=== PATIENT | female | born 1940 | race Caucasian/White ===

== ENCOUNTER 2016-11-29 07:20 | Emergency (ER) | payer OTHER, BC ==
[2016-11-29 07:42] VITALS: BP 134/76; BMI 22.8
[2016-11-29 08:04] LABS: BASOPHILS # (AUTO) 0.1 X10^3/uL (0.0-0.1); BASOPHILS % (AUTO) 0.5 % (0.2-1.0); EOSINOPHILS % (AUTO) 0.1 % (0.9-2.9); HEMATOCRIT 40.5 % (36.0-47.0); LYMPHOCYTES % (AUTO) 8.3 % (21.0-51.0); MEAN CORPUSCULAR HEMOGLOBIN 30.2 pg (27.0-34.0); MEAN CORPUSCULAR HGB CONC 34.6 g/dL (33.0-35.0); MEAN CORPUSCULAR VOLUME 87.3 fL (80.0-100.0); MEAN PLATELET VOLUME 6.8 fL (7.4-11.0); MONOCYTES # (AUTO) 0.5 x10^3/uL (0.3-0.8); MONOCYTES % (AUTO) 3.9 % (0.0-13.0); NEUTROPHILS # (AUTO) 10.2 x10^3/uL (2.2-4.8); NEUTROPHILS % (AUTO) 87.2 % (42.0-75.0); PLATELET COUNT 387 X10^3/uL (150.0-450.0); RED BLOOD COUNT 4.64 X10^6/uL (3.5-5.4); RED CELL DISTRIBUTION WIDTH 12.8 % (11.6-16.5); WHITE BLOOD COUNT 11.7 X10^3/uL (3.6-10.0)
[2016-11-29] MEDS ORDERED: NS 1000 ML 1,000 ML ONE ×2 (08:21→09:43)
[2016-11-29 08:24] LABS: ALANINE AMINOTRANSFERASE 16 Units/L (12-78); ALKALINE PHOSPHATASE 83 Units/L (46-116); ASPARTATE AMINO TRANSFERASE 16 Units/L (15-37); BLOOD UREA NITROGEN 16 mg/dL (7-18); CALCIUM 9.1 mg/dL (8.5-10.1); CARBON DIOXIDE 26.4 mmol/L (21-32); CHLORIDE 102 mmol/L (98-107); CREATININE 0.96 mg/dL (0.55-1.02); GLUCOSE 102 mg/dL (65-99); SODIUM 140 mmol/L (136-145); TOTAL PROTEIN 8.5 g/dL (6.4-8.2); eGFR BLACK RACES > 60 (>60); eGFR NON BLACK RACES > 60 (>60)
[2016-11-29] MEDS ORDERED: NS 1000 ML 1,000 ML IV SCH (09:00)
--- NOTE | 2016-11-29 09:11 | DR.GENAD ---
HPI - PCP Primary Care Physician: NLD - Complaint/Symptoms Chief Complaint Doctors Comments: Patient presented to the ED with complaint of rectal bleeding onset one days ago associated with nausea and rapid heart beat The blood was bright red. She admits to having a previous episode four months while visiting her daughter in [place]. She was hospitalized for four daysn and various studies done to include EGD and colonoscopy with a negative workup. She has done well until today. She denies tenesmus or abdominal pain. Chief Complaint:: PT C/O BLEEDING FROM RECTUM WITH NAUSEA AND VOMTTING THAT STARTED YESTERDAY. PT STATES SHE HAS HAD THESE SAME SYMPTOMS BEFORE (ACUTE COLITIS). PT STATES - Source History Provided: Patient - Mode of Arrival Mode of Arrival: Ambulatory - Timing Onset of Chief Complaint: 11/28/16 PMH - PMH Past Medical History: Yes Past Medical History: Arthritis, Hypothyroidism Past Medical History Comment: COLITIS Past Surgical History: Yes Surgical History: Ortho Surgery - Family History History of Family Medical Conditions: No - Social History Does any household member use tobacco: No Alcohol Use: None Do you use any recreational Drugs:: No Lives With: Alone Lives Where: Home - infectious screening In the last 2 months have you had wt loss of >10#?: NO Have you had fever, night sweats or hemotysis?: No Have you traveled outside the country in the last 6 months?: No Isolation: Standard ROS - Review of Systems Constitutional: No Symptoms Reported. negative: Diaphoresis, Fever, Malaise, Weakness, Fatigue Eyes: No Symptoms Reported ENTM: No Symptoms Reported Respiratoy: No Symptoms Reported Cardiovascular: No Symptoms Reported Gastrointestinal/Abdominal: No Symptoms Reported Genitourinary: No Symptoms Reported Neurological: No Symptoms Reported Musculoskeletal: No Symptoms Reported Integumentary: No Symptoms Reported Hematologic/Lymphatic: No Symptoms Reported Endocrine: No Symptoms Reported Psychiatric: No Symptoms Reported All Other Systems: Reviewed and Negative PE - Vital Signs Vitals: Temperature 97.4 F Pulse Rate 108 Respiratory Rate 18 Blood Pressure 134/76 O2 Sat by Pulse Oximetry 99 - General Limitations: No Limitations General Appearance: Alert, In No Apparent Distress - Head Head Exam: Normal Inspection, Atraumatic - Eyes Eye exam: Normal Appearance, PERRL, EOMI - ENT ENT Exam: Normal Exam, Normal Oropharynx External Ear Exam: Normal External Inspection TM/Canal Exam: Bilateral Normal Nose Exam: Normal Nose Exam, Sinus Tenderness Mouth Exam: Drooling Throat Exam: Normal Inspection - Neck Neck Exam: Normal Inspection, Full ROM - Chest Chest Inspection: Normal Inspection, Symmetric Chest Wall Rise - Respiratory Respiratory Exam: Normal Lung Sounds Bilat Respiratory Exam: Bilateral Clear to Auscultation - Cardiovascular Cardiovascular Exam: Regular Rate, Tachycardia - Abdominal Exam Abdominal Exam: Normal Inspection, Normal Bowel Sounds. negative: Distention, Tenderness Abdominal Tenderness: negative: RUQ, RLQ, LUQ, LLQ, Epigastrium, Suprapubic, Diffuse, Mild, Moderate, Severe, Other - Extremities Extremities Exam: Normal Inspection - Back Back Exam: Normal Inspection - Neurologic Neurological Exam: Alert, Oriented X3, CN II-XII Intact - Psychiatric Psychiatric Exam: Normal Affect, Normal Mood - Skin Skin Exam: Warm, Dry, Intact Course - Reevaluation 1st: Unchanged ROR - Labs Reviewed Laboratory Results Reviewed?: Yes Result Diagrams: 11/29/16 07:55 11/29/16 07:55 Laboratory: WBC 11.7 X10^3/uL (3.6-10.0) H 11/29/16 07:55 RBC 4.64 X10^6/uL (3.5-5.4) 11/29/16 07:55 Hgb 14.0 g/dL (12.0-16.0) 11/29/16 07:55 Hct 40.5 % (36.0-47.0) 11/29/16 07:55 MCV 87.3 fL (80.0-100.0) 11/29/16 07:55 MCH 30.2 pg (27.0-34.0) 11/29/16 07:55 MCHC 34.6 g/dL (33.0-35.0) 11/29/16 07:55 RDW 12.8 % (11.6-16.5) 11/29/16 07:55 Plt Count 387 X10^3/uL (150.0-450.0) 11/29/16 07:55 MPV 6.8 fL (7.4-11.0) L 11/29/16 07:55 Neut % 87.2 % (42.0-75.0) H 11/29/16 07:55 Lymph % 8.3 % (21.0-51.0) L 11/29/16 07:55 [place] % 3.9 % (0.0-13.0) 11/29/16 07:55 Eos % 0.1 % (0.9-2.9) L 11/29/16 07:55 Baso % 0.5 % (0.2-1.0) 11/29/16 07:55 Neut # 10.2 x10^3/uL (2.2-4.8) H 11/29/16 07:55 Lymph # 1.0 X10^3/uL (1.3-2.9) L 11/29/16 07:55 [place] # 0.5 x10^3/uL (0.3-0.8) 11/29/16 07:55 Eos # 0.0 x10^3/uL (0.0-0.2) 11/29/16 07:55 Baso # 0.1 X10^3/uL (0.0-0.1) 11/29/16 07:55 Absolute Nucleated RBC 0.1 /100WBC 11/29/16 07:55 Sodium 140 mmol/L (136-145) 11/29/16 07:55 Corrected Sodium TNP 11/29/16 07:55 Potassium 3.6 mmol/L (3.5-5.1) 11/29/16 07:55 Chloride 102 mmol/L (98-107) 11/29/16 07:55 Carbon Dioxide 26.4 mmol/L (21-32) 11/29/16 07:55 BUN 16 mg/dL (7-18) 11/29/16 07:55 Creatinine 0.96 mg/dL (0.55-1.02) 11/29/16 07:55 Est GFR (MDRD) Af Amer > 60 (>60) 11/29/16 07:55 Est GFR (MDRD) Non-Af > 60 (>60) 11/29/16 07:55 Glucose 102 mg/dL (65-99) H 11/29/16 07:55 Calcium 9.1 mg/dL (8.5-10.1) 11/29/16 07:55 Corrected Calcium TNP 11/29/16 07:55 Total Bilirubin 0.50 mg/dL (0.2-1.0) 11/29/16 07:55 AST 16 Units/L (15-37) 11/29/16 07:55 ALT 16 Units/L (12-78) 11/29/16 07:55 Alkaline Phosphatase 83 Units/L (46-116) 11/29/16 07:55 C-Reactive Protein 11.80 mg/L (0-3.0) H 11/29/16 07:55 Total Protein 8.5 g/dL (6.4-8.2) H 11/29/16 07:55 Albumin 4.0 g/dL (3.4-5.0) 11/29/16 07:55 Globulin 4.5 g/dL (2.5-4.5) 11/29/16 07:55 Albumin/Globulin Ratio 0.9 Ratio (1.1-2.1) L 11/29/16 07:55 Stool Description Ifob collection tube 11/29/16 08:31 Stl Occult Blood (IFOB) Positive (NEGATIVE) A 11/29/16 08:31 - XRAY XRAY Interpreted by: Radiologist (CT Abd/pel: Multiple small subcentimer hypodensities are noted in the liever which are too small to cahracterize but likely represent cysts. The gallbladder is present and nondistended. There is no intrahepatic or extrahepatic bile duct dilatation. The spleen, pancreas, and bilateral adrenal glands appear normal. There are several small left renal sinus cysts. There is no hydronephrosis. The stomach is unremarkable. The small bowel and colon are nondistended. k The appendix is of normal caliber without adjacent inflammatory changes. There is circumferential wall thickening of the desending colon from the splenic flexure to the proximal sigmoid colon. There is mild adjacent fat stranding. No adjacent fluid collections are seen. The abdominal aorta is of normal caliber. There is no free fluid or free intraperitoneal air. The urinary bladder is grossly unremarkable. Mild wall thickening of the proximal sigmoid colon is noted. There is no free fluid in the pelvis. No acute osseous abnormalities are identified. Impression: Wall thickening of the desending colon from the spenic fexure through the proximal sigmoid colon with mild adjacent inflammatory changes are compatible with colitis. Considerations include infectious colitis, inflammatory bowel disease, with ischemic colitis not entirely excluded although felt less likely given the distribution.) - Diagnosis Discharge Problem: Colitis, acute - Discharge Plan Condition: Stable - Follow ups/Referrals Follow ups/Referrals: NFD,None [Primary Care Provider] - 3 days - Instructions
[2016-11-29] MEDS ORDERED: NS 100 ML IV 100 ML IV ONE (09:50)
--- NOTE | 2016-11-29 11:04 | CT ---
HISTORY: Rectal bleeding. Study: CT abdomen and pelvis with contrast Comparison: None Technique: Multiple axial images of the abdomen and pelvis were obtained from the lung bases to the pubic symph ysis after the administration of IV contrast. Automated exposure control (AEC) was utilized to adju st the MA and/or kV according to patient size. Findings: Lung bases are grossly clear. There are no pleural effusions. Abdomen: Multiple small subcentimeter hypodensities are noted in the liver which are too small to characteriz e but likely represent cysts.. The gallbladder is present and nondistended. There is no intrahepat ic or extrahepatic bile duct dilatation. The spleen, pancreas, and bilateral adrenal glands appear normal. There are several small left renal sinus cysts. There is no hydronephrosis. The stomach is unremarkable. The small bowel and colon are nondistended. The appendix is of normal caliber without adjacent inflammatory changes. There is circumferential wall thickening of the desc ending colon from the splenic flexure to the proximal sigmoid colon. There is mild adjacent fat stra nding. No adjacent fluid collections are seen. The abdominal aorta is of normal caliber. There is no free fluid or free intraperitoneal air. Pelvis: The urinary bladder is grossly unremarkable. Mild wall thickening of the proximal sigmoid colon is n oted.. There is no free fluid in the pelvis. No acute osseous abnormalities are identified. IMPRESSION: 1. Wall thickening of the descending colon from the splenic flexure through the proximal sigmoid co [place] with mild adjacent inflammatory changes. Findings are compatible with colitis. Considerations in clude infectious colitis, inflammatory bowel disease, with ischemic colitis not entirely excluded al though felt less likely given the distribution 2. Other findings as above.. Reported By:
== END 2016-11-29 11:36 | disposition home or self-care (01) ==
LOC: ER 07:37
DX: K52.89 Other specified noninfective gastroenteritis and colitis (principal)
CPT/HCPCS: 36415; 74177; 80053; 82270; 85025; 86140; 96365; 96367; 96374; 99283; A4222

== ENCOUNTER → 2016-12-09 | Outpatient (CLI) | payer OTHER, BC ==
[2016-11-29 07:42] VITALS: BP 134/76
[2016-12-09 09:24] LABS: CHOL/HDL RATIO 2.9 (0.0-5.0)
== END ==
LOC: LAB 08:36
PROVIDERS: ATTEND Nurse Practitioner Adult Health
DX: I10 Essential (primary) hypertension (principal)
CPT/HCPCS: 36415; 80061

== ENCOUNTER → 2017-01-29 | Outpatient (CLI) | payer OTHER, BC ==
--- NOTE | 2017-01-29 07:36 | RAD ---
HISTORY: Right hip pain Study: Right hip two views, AP pelvis Comparison: None Findings: The pelvic bones and SI joints are intact. The right hip joint is intact. Moderate degenerative join t disease is present in the form of joint space narrowing and osteophyte formation. No joint erosion s are noted. No fracture, lytic, or blastic lesion is identified. Incidental note is made of degener ative joint disease in the left hip. IMPRESSION: Degenerative joint disease right hip as describe Incidental note is made of degenerative joint disease in the left hip Reported By:
== END ==
LOC: RAD 06:47
PROVIDERS: ATTEND Internal Medicine Rheumatology
DX: M25.551 Pain in right hip (principal); M16.11 Unilateral primary osteoarthritis, right hip
CPT/HCPCS: 73501

== ENCOUNTER → 2017-02-17 | Outpatient (CLI) | payer OTHER, BC ==
[2017-02-17 09:19] LABS: ALANINE AMINOTRANSFERASE 15 Units/L (12-78); ALBUMIN 3.3 g/dL (3.4-5.0); ALKALINE PHOSPHATASE 68 Units/L (46-116); ASPARTATE AMINO TRANSFERASE 11 Units/L (15-37); BLOOD UREA NITROGEN 10 mg/dL (7-18); CALCIUM 8.3 mg/dL (8.5-10.1); CARBON DIOXIDE 26.8 mmol/L (21-32); CHLORIDE 106 mmol/L (98-107); COR CA(FOR HYPOALB) 8.9 mg/dL (8.5-10.1); CREATININE 0.53 mg/dL (0.55-1.02); GLUCOSE 83 mg/dL (65-99); SODIUM 141 mmol/L (136-145); TOTAL PROTEIN 7.1 g/dL (6.4-8.2); eGFR BLACK RACES > 60 (>60); eGFR NON BLACK RACES > 60 (>60)
[2017-02-17 09:21] LABS: BASOPHILS # (AUTO) 0.1 X10^3/uL (0.0-0.1); BASOPHILS % (AUTO) 1.3 % (0.2-1.0); EOSINOPHILS # (AUTO) 0.1 x10^3/uL (0.0-0.2); EOSINOPHILS % (AUTO) 1.6 % (0.9-2.9); HEMATOCRIT 34.4 % (36.0-47.0); HEMOGLOBIN 11.9 g/dL (12.0-16.0); LYMPHOCYTES # (AUTO) 1.2 X10^3/uL (1.3-2.9); LYMPHOCYTES % (AUTO) 23.9 % (21.0-51.0); MEAN CORPUSCULAR HEMOGLOBIN 30.8 pg (27.0-34.0); MEAN CORPUSCULAR HGB CONC 34.5 g/dL (33.0-35.0); MEAN CORPUSCULAR VOLUME 89.3 fL (80.0-100.0); MONOCYTES # (AUTO) 0.5 x10^3/uL (0.3-0.8); MONOCYTES % (AUTO) 9.4 % (0.0-13.0); NEUTROPHILS # (AUTO) 3.2 x10^3/uL (2.2-4.8); NEUTROPHILS % (AUTO) 63.8 % (42.0-75.0); PLATELET COUNT 360 X10^3/uL (150.0-450.0); RED BLOOD COUNT 3.85 X10^6/uL (3.5-5.4); RED CELL DISTRIBUTION WIDTH 13.3 % (11.6-16.5)
== END ==
LOC: LAB 08:30
DX: H16.223 Keratoconjunctivitis sicca, not specified as Sjogren's, bilateral (principal); K11.7 Disturbances of salivary secretion; M19.041 Primary osteoarthritis, right hand; M19.042 Primary osteoarthritis, left hand; M25.511 Pain in right shoulder
CPT/HCPCS: 36415; 80053; 85025

== ENCOUNTER → 2017-03-03 | Outpatient (CLI) | payer OTHER, BC ==
[2017-03-03 09:08] LABS: ALANINE AMINOTRANSFERASE 13 Units/L (12-78); ALBUMIN 3.4 g/dL (3.4-5.0); ALKALINE PHOSPHATASE 62 Units/L (46-116); ASPARTATE AMINO TRANSFERASE 11 Units/L (15-37); BLOOD UREA NITROGEN 8 mg/dL (7-18); CALCIUM 7.9 mg/dL (8.5-10.1); CARBON DIOXIDE 27.7 mmol/L (21-32); CHLORIDE 108 mmol/L (98-107); CREATININE 0.66 mg/dL (0.55-1.02); GLUCOSE 89 mg/dL (65-99); SODIUM 142 mmol/L (136-145); TOTAL PROTEIN 7.2 g/dL (6.4-8.2); eGFR BLACK RACES > 60 (>60); eGFR NON BLACK RACES > 60 (>60)
[2017-03-03 09:20] LABS: BASOPHILS # (AUTO) 0.1 X10^3/uL (0.0-0.1); BASOPHILS % (AUTO) 1.1 % (0.2-1.0); EOSINOPHILS # (AUTO) 0.1 x10^3/uL (0.0-0.2); EOSINOPHILS % (AUTO) 1.8 % (0.9-2.9); HEMATOCRIT 34.2 % (36.0-47.0); LYMPHOCYTES # (AUTO) 1.3 X10^3/uL (1.3-2.9); LYMPHOCYTES % (AUTO) 20.8 % (21.0-51.0); MEAN CORPUSCULAR HEMOGLOBIN 31.2 pg (27.0-34.0); MEAN CORPUSCULAR HGB CONC 35.2 g/dL (33.0-35.0); MEAN CORPUSCULAR VOLUME 88.8 fL (80.0-100.0); MEAN PLATELET VOLUME 7.2 fL (7.4-11.0); MONOCYTES # (AUTO) 0.5 x10^3/uL (0.3-0.8); MONOCYTES % (AUTO) 7.1 % (0.0-13.0); NEUTROPHILS # (AUTO) 4.5 x10^3/uL (2.2-4.8); NEUTROPHILS % (AUTO) 69.2 % (42.0-75.0); PLATELET COUNT 338 X10^3/uL (150.0-450.0); RED BLOOD COUNT 3.86 X10^6/uL (3.5-5.4); WHITE BLOOD COUNT 6.5 X10^3/uL (3.6-10.0)
== END ==
LOC: LAB 07:59
DX: H16.223 Keratoconjunctivitis sicca, not specified as Sjogren's, bilateral (principal); K11.7 Disturbances of salivary secretion; M19.041 Primary osteoarthritis, right hand; M19.042 Primary osteoarthritis, left hand; M25.511 Pain in right shoulder
CPT/HCPCS: 36415; 80053; 85025

== ENCOUNTER → 2017-03-04 | Outpatient (CLI) | payer OTHER, BC ==
--- NOTE | 2017-03-04 16:08 | MG ---
HISTORY: SCREENING Comparison: Multiple mammograms dating back to February 14, 2015. FINDINGS: Bilateral CC and MLO projections of the right and left breast were obtained. Scattered fibroglandul ar tissue is seen to be present. No significant architectural distortion, mass or clustered microca lcifications can be observed to suggest malignancy. No skin thickening or nipple retraction is appr eciated. No pathological lymphadenopathy can be identified. Benign-appearing calcifications scatte red throughout the right and left breasts are observed. Stable appearing bilateral nodular densities . Multiple mole markers are seen overlying the breasts. IMPRESSION: NO RADIOGRAPHIC EVIDENCE OF MALIGNANCY. ACR CATEGORY: 2 - benign findings. FOLLOW-UP EXAM 1 YEAR. Diagnostic CAD was utilized and reviewed. * 0 (ZERO) - ASSESSMENT INCOMPLETE; ADDITIONAL IMAGING IS NEEDED. * 1/1 (ONE) - NEGATIVE. * 2/II (TWO) - BENIGN FINDINGS. * 3/III (THREE) - PROBABLY BENIGN FINDING; SHORT INTERVAL FOLLOW-UP SUGGESTED. * 4/IV (FOUR) - SUSPICIOUS ABNORMALITY; BIOPSY SHOULD BE CONSIDERED. * 5/V - HIGHLY SUSPICIOUS OF MALIGNANCY; BIOPSY SHOULD BE PERFORMED. A NEGATIVE X-RAY REPORT SHOULD NOT DELAY BIOPSY IF A DOMINANT OR CLINICALLY SUSPICIOUS MASS IS PRESENT; 4 TO 8 PERCENT OF CANCERS ARE NOT IDENTIFIED BY X-RAY. A NEG ATIVE REPORT MAY REINFORCE THE CLINICAL IMPRESSION. ADENOSIS AND DENSE BREASTS MAY OBSCURE AN UNDER LYING NEOPLASM. Reported By:
== END ==
LOC: RAD 07:31
PROVIDERS: ATTEND Specialist
DX: Z12.31 Encounter for screening mammogram for malignant neoplasm of breast (principal)
CPT/HCPCS: 77067

== ENCOUNTER → 2017-03-25 | Outpatient (CLI) | payer OTHER, BC ==
[2017-03-25 07:53] LABS: BASOPHILS # (AUTO) 0.1 X10^3/uL (0.0-0.1); EOSINOPHILS # (AUTO) 0.1 x10^3/uL (0.0-0.2); EOSINOPHILS % (AUTO) 2.4 % (0.9-2.9); HEMATOCRIT 36.7 % (36.0-47.0); HEMOGLOBIN 12.8 g/dL (12.0-16.0); LYMPHOCYTES # (AUTO) 1.2 X10^3/uL (1.3-2.9); LYMPHOCYTES % (AUTO) 33.2 % (21.0-51.0); MEAN CORPUSCULAR HEMOGLOBIN 31.4 pg (27.0-34.0); MEAN CORPUSCULAR HGB CONC 34.9 g/dL (33.0-35.0); MEAN CORPUSCULAR VOLUME 89.8 fL (80.0-100.0); MEAN PLATELET VOLUME 6.9 fL (7.4-11.0); MONOCYTES # (AUTO) 0.3 x10^3/uL (0.3-0.8); NEUTROPHILS % (AUTO) 55.4 % (42.0-75.0); PLATELET COUNT 347 X10^3/uL (150.0-450.0); RED BLOOD COUNT 4.08 X10^6/uL (3.5-5.4); RED CELL DISTRIBUTION WIDTH 13.1 % (11.6-16.5); WHITE BLOOD COUNT 3.6 X10^3/uL (3.6-10.0)
[2017-03-25 08:22] LABS: ALANINE AMINOTRANSFERASE 13 Units/L (12-78); ALBUMIN 3.8 g/dL (3.4-5.0); ALKALINE PHOSPHATASE 58 Units/L (46-116); ASPARTATE AMINO TRANSFERASE 12 Units/L (15-37); BLOOD UREA NITROGEN 7 mg/dL (7-18); CALCIUM 8.1 mg/dL (8.5-10.1); CARBON DIOXIDE 30.3 mmol/L (21-32); CHLORIDE 106 mmol/L (98-107); CHOL/HDL RATIO 3.3 (0.0-5.0); CHOLESTEROL 234 mg/dL (0-200); CREATININE 0.71 mg/dL (0.55-1.02); GLUCOSE 89 mg/dL (65-99); HDL CHOLESTEROL 70 mg/dL (40-60); SODIUM 143 mmol/L (136-145); TOTAL PROTEIN 7.7 g/dL (6.4-8.2); TRIGLYCERIDES 62 mg/dL (0-150); TSH (3RD GENERATION) 0.078 uIU/mL (0.358-3.74); eGFR BLACK RACES > 60 (>60); eGFR NON BLACK RACES > 60 (>60)
== END ==
LOC: LAB 07:24
PROVIDERS: ATTEND Nurse Practitioner Adult Health
DX: E03.8 Other specified hypothyroidism (principal); I10 Essential (primary) hypertension
CPT/HCPCS: 36415; 80053; 80061; 84443; 84481; 85025